=== PATIENT | male | born 1960 | race Caucasian/White ===

== ENCOUNTER 2019-02-07 09:14 | Day surgery (SDC) | payer OTHER ==
[2019-02-07] VITALS (11 sets, daily range): BP systolic 102–137; BP diastolic 51–91; PULSE 56–65; RESP 14–21; Ht 167.6 cm; Wt 85.9 kg
[~2019-02-07] VITALS: Ht 167.6 cm; Wt 85.9 kg
[~2019-02-07 09:14] MED LIST: CEFAZOLIN 2 GM/50 ML (PMX) 50 ML IVPB ONE; SOD CHLORIDE 0.9% 1,000 ML IV SCH
[2019-02-07] MEDS ORDERED: TRAM50TA2 ORAL (09:56)
[2019-02-07] MEDS ORDERED: RAMI2.5C36 PO (09:56)
[2019-02-07] MEDS ORDERED: BUPIVACAINE 0.25% (MPF) 30 ML INJ ONE (12:39)
--- NOTE | 2019-02-07 12:47 | PREAC ---
Date/Time of Note Date/Time of Note DATE: 02/07/19 TIME: 12:46 Anesthesia Eval and Record Evaluation Time Pre-Procedure Interview DATE: 02/07/19 TIME: 12:46 Age 58 Sex male NPO: 8 hrs Preoperative diagnosis left arm, left chest, and left abdominal mass Planned procedure left arm, left chest, and left abdominal mass excision Past Medical History Past Medical History: Includes Cardio: HTN GI: Obesity Surgery & Anesthesia Issues No known issue Meds Anticoagulation: No Beta Kit within 24 hr: No Reason Beta Kit not given: Pt. not on B-Kit Reported Medications Tramadol HCl (Tramadol HCl) 50 Mg Tablet, 1 TAB ORAL DAILY 02/07/19 Ramipril (Ramipril) 2.5 Mg Capsule, 2.5 MG PO DAILY, CAP 02/07/19 Current Medications Sodium Chloride 1,000 ml @ 75 mls/hr [id number] IV ; Start 02/07/19 at 07:00; Stop 02/07/19 at 20:19 Meds reviewed: Yes Allergies Coded Allergies: No Known Drug Allergies (Unverified Allergy, Unknown, 02/06/19) Allergies Reviewed: Yes Labs/Studies Labs Reviewed: Reviewed by anesthesiologist Result Diagram: 02/07/1958 02/07/19 0958 Laboratory Tests 02/07/19 09:58 test: N/A Pre-procedure Exam Last vitals Vital Signs Date Temp Pulse Resp B/P (MAP) Pulse Ox O2 O2 Flow FiO2 Time Delivery Rate 02/07/19 97.1 65 16 125/91 97 Room Air 10:13 (102) Airway: Adequate mouth opening, Adequate thyromental dist Mallampati: Mallampati II Teeth: Normal Lung: Normal Heart: Normal ASA Physical Status ASA physical status: 2 Emergency: None Planned Anesthetic General/MAC: LMA Planned Pain Management Parenteral pain med Pre-operative Attestations Prior to commencing anesthesia and surgery, the patient was re-evaluated, there was verification of: *The patient's identity *The results of appropriate recent lab work and preoperative vital signs *The above evaluation not changing prior to induction *Anesthetic plan, risk benefits, alternative and complications discussed with patient/family; questions answered; patient/family understands, accepts and wishes to proceed. HANNY PENG MD Feb 07, 2019 12:47
[2019-02-07] MEDS ORDERED: PROPOFOL 20 ML ONE (12:54)
[2019-02-07] MEDS ORDERED: LIDOCAINE 2% (SDV) 5 ML INJ ONE (12:55)
[2019-02-07] MEDS ORDERED: MIDAZOLAM 1 MG/ML 2 ML INJ ONE (12:55)
[2019-02-07] MEDS ORDERED: FENTAnyl 50 MCG/ML VIAL ONE (12:56)
[2019-02-07] MEDS ORDERED: EPHEDrine SULFATE 50 MG/5 ML SYG IV PRN (13:00)
[2019-02-07] MEDS ORDERED: MEPERIDINE 25 MG INJ IV PRN (13:00)
[2019-02-07] MEDS ORDERED: ONDANSETRON 4 MG INJ IV PRN (13:00)
[2019-02-07] MEDS ORDERED: HYDROmorphONE 1 MG/5 ML IV SYRINGE IV PRN ×3 (13:00)
[2019-02-07] MEDS ORDERED: PROCHLORPERAZINE 10 MG INJ IV PRN (13:00)
[2019-02-07] MEDS ORDERED: DIPHENHYDRAMINE 50 MG INJ IV PRN (13:00)
[2019-02-07] MEDS ORDERED: FENTAnyl 50 MCG/ML VIAL IV PRN ×3 (13:00)
[2019-02-07] MEDS ORDERED: hydrALAzine 20 MG INJ IV PRN (13:00)
[2019-02-07] MEDS ORDERED: OXYCODONE/ACETAMINOPHEN (5/325) TAB PO PRN (13:00)
[2019-02-07] MEDS ORDERED: LABETALOL HCL 20MG INJ IV PRN (13:00)
[2019-02-07] MEDS ORDERED: ONDANSETRON 4 MG INJ ONE (13:07)
[2019-02-07] MEDS ORDERED: FAMOTIDINE 20 MG INJ ONE (13:07)
[2019-02-07] MEDS ORDERED: DEXAMETHASONE 4 MG/ML 5 ML INJ ONE (13:07)
[2019-02-07] MEDS ORDERED: CEFAZOLIN 1 GM INJ ONE (13:07)
[2019-02-07] MEDS ORDERED: HYDROCODONE/APAP (5/325) TAB PO ONE (13:30)
--- NOTE | 2019-02-07 13:31 | OPR ---
Date/Time of Note Date/Time of Note DATE: 02/07/19 TIME: 13:27 Operative Report Procedure Date: Feb 07, 2019 Preoperative Diagnosis left abdomen, left chest, and left arm masses Postoperative Diagnosis same Operation/Procedure Performed 1. excision of left chest mass 5 cm mass 5 cm incision 2. localized adjacent tissue transfer with the use of skin flaps 10 sq cm defect of left chest 3. excision of left abdominal mass 5 cm mass 5 cm incision 4. localized adjacent tissue transfer with the use of skin flaps 10 sq cm defect of left abdomen 5. excision of left arm mass 3 cm mass 3 cm incision 6. localized adjacent tissue transfer with the use of skin flaps 6 sq cm defect of left arm 7. therapeutic injection of subcutaneous local anesthesia Surgeon see signature line Admissions Coordinator none Anesthesia Type: general Estimated Blood Loss: 10 - 50 ml's Transfusion none Specimen left chest mass left abdominal mass left arm mass Grafts/Implants none Complications none Pt Condition Post Procedure: stable Indications This is a 58-year-old male with a left chest mass left abdominal mass and left arm mass. He requests surgical excision of the masses. Risks alternatives benefits and percent were discussed the patient. Patient expressed understanding consents to the operation. Procedure Description Patient is taken to the OR and prepped and draped in usual sterile fashion. Surgical time was performed. IV antibiotics were given. Attention was then paid to the left chest mass. Transverse incision was made at the 15 blade over the left chest mass. Dissection with cautery carried onto the mass and the mass in circumference excised. Good hemostasis established. Due to tissue defect localization to transfer with these of skin flaps were performed. Closure was performed with skin lester. Attention is impaired to the left abdominal mass. Transverse incision with a 15 blade over the left mass. Dissection with cautery taken onto the mass in circumference excised. Good hemostasis established. Localized adjacent to his transfer with these of skin flaps was performed due to the tissue defect. The skin was then closed with skin lester. Attention was then paid to the left arm mass. Transverse incision was made over the left arm mass with a 15 blade. Cautery was used to excise the left arm mass. Good hemostasis established. Due to tissue defect localized adjacent to his transfer with these of skin flaps was performed. Closure was performed skin lester. Therapeutic contains local anesthesia was injected throughout all incision sites. Dry dressings were applied. Tameka DUNN Feb 07, 2019 13:31
--- NOTE | 2019-02-07 14:26 | PAC ---
Date/Time of Note Date/Time of Note DATE: 02/07/19 TIME: 14:25 Post-Anesthesia Notes Post-Anesthesia Note Last documented vital signs Vital Signs Date Temp Pulse Resp B/P (MAP) Pulse Ox O2 O2 Flow FiO2 Time Delivery Rate 02/07/19 64 17 109/57 97 Mask 10.0 13:53 (74) 02/07/19 98.6 13:43 Activity: WNL Respiratory function: WNL Cardiovascular function: WNL Mental status: Baseline Pain reasonably controlled: Yes Hydration appropriate: Yes Nausea/Vomiting absent: Yes Comments BP: 108/59 HR: 65 RR: 15 T: 98.6 SaO2: 98% HANNY PENG MD Feb 07, 2019 14:26
--- NOTE | 2019-02-08 18:03 | RADRPT ---
Vent Rate: 61 bpm RR Interval: 0 msec MI Interval: 168 msec QRS Duration: 92 msec QT Interval: 426 msec QTC Interval: 428 msec P-R-T [place]: 42 - -34 - 28 degrees Normal sinus rhythm Left axis deviation Cannot rule out Anterior infarct , age undetermined Abnormal ECG Electronically Signed By: Heladio Benitez
== END 2019-02-07 15:34 | disposition home or self-care (01) ==
LOC: SDS 09:14
PROVIDERS: ATTEND Surgery
DX: D17.1 Benign lipomatous neoplasm of skin and subcutaneous tissue of trunk (principal); D17.22 Benign lipomatous neoplasm of skin and subcutaneous tissue of left arm; I10 Essential (primary) hypertension
CPT/HCPCS: 14000; 14020; 71045; 80053; 85025; 85610; 85730; 88307; 93005; J0690; J1100; J2250; J2405; J3010; Z7512; Z7610

== ENCOUNTER 2019-03-13 09:03 | Day surgery (SDC) | payer OTHER ==
[2019-03-12 15:13] VITALS: BMI 29.7
[~2019-03-13] VITALS: Ht 170.2 cm; Wt 87.3 kg
[2019-03-13] VITALS (17 sets, daily range): BP systolic 11–134; BP diastolic 61–98; PULSE 44–55; RESP 14–24; Ht 170.2 cm; Wt 87.3 kg
[~2019-03-13 09:03] MED LIST changes: -CEFAZOLIN 2 GM/50 ML (PMX) 50 ML IVPB ONE; +CEFAZOLIN 2 GM/50 ML (PMX) 50 ML IVPB SCH; +RAMI2.5C36 PO; +TRAM50TA2 ORAL
[2019-03-13] MEDS ORDERED: LACTATED RINGER'S 1,000 ML IV SCH (10:30)
--- NOTE | 2019-03-13 11:41 | PREAC ---
Date/Time of Note Date/Time of Note DATE: 03/13/19 TIME: 11:39 Anesthesia Eval and Record Evaluation Time Pre-Procedure Interview DATE: 03/13/19 TIME: 11:39 Age 58 Sex male NPO: 8 hrs Preoperative diagnosis left arm mass, right leg mass, right flank mass Planned procedure excision left arm mass, right leg mass, right flank mass Past Medical History Past Medical History: Includes Cardio: HTN GI: Obesity Surgery & Anesthesia Issues No known issue Meds Anticoagulation: No Beta Kit within 24 hr: No Reason Beta Kit not given: Pt. not on B-Kit Reported Medications Ramipril (Ramipril) 2.5 Mg Capsule, 2.5 MG PO DAILY, CAP 02/07/19 Discontinued Reported Medications Tramadol HCl (Tramadol HCl) 50 Mg Tablet, 1 TAB ORAL DAILY 02/07/19 Current Medications Cefazolin Sodium/ Dextrose 50 ml @ 100 mls/hr PRE-OP IVPB ; Start 03/13/19 at 07:00; Stop 03/13/19 at 12:00 Sodium Chloride 1,000 ml @ 75 mls/hr [id number] IV Last administered on 03/13/19at 10:38; Admin Dose 75 MLS/HR; Start 03/12/19 at 12:00 Meds reviewed: Yes Allergies Coded Allergies: No Known Drug Allergies (Verified Allergy, Unknown, 03/13/19) Allergies Reviewed: Yes Labs/Studies Labs Reviewed: Reviewed by anesthesiologist Result Diagram: 03/13/19 1023 03/13/19 1023 Laboratory Tests 03/13/19 10:23 test: N/A Pre-procedure Exam Last vitals Vital Signs Date Temp Pulse Resp B/P (MAP) Pulse Ox O2 O2 Flow FiO2 Time Delivery Rate 03/13/19 97.7 55 16 129/90 98 Room Air 10:19 (103) Airway: Adequate mouth opening, Adequate thyromental dist Mallampati: Mallampati II Teeth: Normal Lung: Normal Heart: Normal ASA Physical Status ASA physical status: 2 Emergency: None Planned Anesthetic General/MAC: Mask (vs. ), LMA Planned Pain Management Parenteral pain med Pre-operative Attestations Prior to commencing anesthesia and surgery, the patient was re-evaluated, there was verification of: *The patient's identity *The results of appropriate recent lab work and preoperative vital signs *The above evaluation not changing prior to induction *Anesthetic plan, risk benefits, alternative and complications discussed with patient/family; questions answered; patient/family understands, accepts and wishes to proceed. HANNY PENG MD March 13, 2019 11:41
[2019-03-13] MEDS ORDERED: HYDROmorphONE 1 MG/5 ML IV SYRINGE IV PRN ×3 (12:00)
[2019-03-13] MEDS ORDERED: OXYCODONE/ACETAMINOPHEN (5/325) TAB PO PRN (12:00)
[2019-03-13] MEDS ORDERED: DIPHENHYDRAMINE 50 MG INJ IV PRN (12:00)
[2019-03-13] MEDS ORDERED: ONDANSETRON 4 MG INJ IV PRN (12:00)
[2019-03-13] MEDS ORDERED: MEPERIDINE 25 MG INJ IV PRN (12:00)
[2019-03-13] MEDS ORDERED: FENTAnyl 50 MCG/ML VIAL IV PRN ×3 (12:00)
[2019-03-13] MEDS ORDERED: PROCHLORPERAZINE 10 MG INJ IV PRN (12:00)
[2019-03-13] MEDS ORDERED: BUPIVACAINE 0.5% (SDV) 30 ML INJ ONE (12:03)
[2019-03-13] MEDS ORDERED: LIDOCAINE 2% (MDV) 20 ML INJ ONE (12:03)
[2019-03-13] MEDS ORDERED: MIDAZOLAM 1 MG/ML 2 ML INJ ONE (12:17)
[2019-03-13] MEDS ORDERED: FENTAnyl 50 MCG/ML VIAL ONE (12:21)
[2019-03-13] MEDS ORDERED: LIDOCAINE 2% (SDV) 5 ML INJ ONE (12:23)
[2019-03-13] MEDS ORDERED: CEFAZOLIN 1 GM INJ ONE (12:23)
[2019-03-13] MEDS ORDERED: PROPOFOL 40 ML ONE (12:42)
[2019-03-13] MEDS ORDERED: HYDROCODONE/APAP (5/325) TAB PO ONE (13:00)
--- NOTE | 2019-03-13 13:00 | OPR ---
Date/Time of Note Date/Time of Note DATE: 03/13/19 TIME: 12:56 Operative Report Procedure Date: March 13, 2019 Preoperative Diagnosis left arm mass right leg mass right flank mass Postoperative Diagnosis same Operation/Procedure Performed 1. excision of left arm mass 3 cm mass 3 cm incision 2. localized adjacent tissue transfer with the use of skin flaps 6 sq cm defect of left arm 3. excision of right leg mass 5 cm mass 5 cm incision 4. localized adjacent tissue transfer with the use of skin flaps 10 sq cm defect of right leg 5. excision of right flank mass 5 cm mass 5 cm incision 6. localized adjacent tissue transfer with the use of skin flaps 10 sq cm defect of right flank 7. therapeutic injection of subcutaneous local anesthesia Surgeon see signature line Sledger none Anesthesia Type: general Estimated Blood Loss: 0 - 10 ml's Transfusion none Specimen left arm mass right leg mass right flank mass Grafts/Implants none Complications none Pt Condition Post Procedure: stable Indications This is a 58-year-old male with a left arm mass and right leg mass and a right flank mass. He request surgical excision of the masses. Risks alternatives benefits and percent were discussed the patient. Patient expressed understanding and consents to the operation. Procedure Description Patient is taken to the OR prepped and draped in usual sterile fashion. Surgical time was performed. IV antibiotics were given. Therapeutic subcutaneous local anesthesia was injected at the left arm mass right leg mass and the right flank masses. Transverse incision was made in the left arm mass with a 15 blade. Dissection with cautery skin onto the mass. The mass excised. Good hemostasis status. Due to tissue defect localized adjacent to his transfer with these of skin flaps were performed. Closure was performed skin lester. Attention was then paid to the right leg mass. Transverse incision was made with a 15 blade. Dissection with cautery could onto the mass. The mass in circumference excised. Good hemostasis established. Due to tissue de fect localization to stress with use of skin flaps were performed. Closure was performed skin lester. Attention was then paid to the right flank mass. Transverse incision was made with a 15 blade. Dissection with cautery skin of the mass. The mass was circumferentially excised. Good hemostasis status. Due to tissue defect localized to transfer with use of skin flaps performed. Closure was performed skin lester. Dry dressings were applied to all surgical sites. Tameka DUNN March 13, 2019 12:59
--- NOTE | 2019-03-13 13:06 | PAC ---
Date/Time of Note Date/Time of Note DATE: 03/13/19 TIME: 13:06 Post-Anesthesia Notes Post-Anesthesia Note Last documented vital signs Vital Signs Date Temp Pulse Resp B/P (MAP) Pulse Ox O2 O2 Flow FiO2 Time Delivery Rate 03/13/19 97.7 55 16 129/90 98 Room Air 10:19 (103) Activity: WNL Respiratory function: WNL Cardiovascular function: WNL Mental status: Baseline Pain reasonably controlled: Yes Hydration appropriate: Yes Nausea/Vomiting absent: Yes Comments BP: 108/58 HR: 60 RR: 15 T: 98 SaO2: 99% HANNY PENG MD March 13, 2019 13:06
== END 2019-03-13 14:50 | disposition home or self-care (01) ==
LOC: SDS 09:03
PROVIDERS: ATTEND Surgery
DX: D17.22 Benign lipomatous neoplasm of skin and subcutaneous tissue of left arm (principal); D17.1 Benign lipomatous neoplasm of skin and subcutaneous tissue of trunk; D17.23 Benign lipomatous neoplasm of skin and subcutaneous tissue of right leg; I10 Essential (primary) hypertension
CPT/HCPCS: 14000; 14021; 80053; 85025; 85610; 85730; 88307; J0690; J2250; J3010; Z7512; Z7610